=== PATIENT | female | born 1975 | race Caucasian/White ===

== ENCOUNTER → 2016-11-13 | Outpatient (CLI) | payer BC ==
[~2016-11-13] MED LIST: ACHD5005 PO; CYCL10TA45 PO; CYCL10TA9 PO; DICL25TA PO; DICL75TA2 PO; HCTZ12.5T PO; HYDR-2890 PO; HYDR-3720 PO; METH750T3 PO; OMEP-10 PO; PRD20T PO
--- OUTSIDE RECORDS SUMMARY | 2016-11-13 13:36 | XMS REPORT | Continuity of Care Document ---
Author Author [facility] Organization [facility] Address Unknown Phone Unavailable Care Team Providers Care Cutter And Paster Press Clippings Name Role Phone JULIA MAGDALENO JOHN PCP Insurance Providers Payer Name Policy Number Subscriber Name Relationship [facility] [id number] Melinda Contreras 17 Self / Same As Patient Advance Directives Directive Response Recorded Date/Time Advance Directives No 04/16/14 10:30am Health Care Power of Fun House Attendant No 04/16/14 10:30am Organ Donor No 04/16/14 10:30am Resuscitation Status Full Code 04/16/14 10:30am Problems No known problems or medical conditions. Medications Medication Dose Route Sig Days/Qty Instructions Order Date Discontinued Date Status Cyclobenzaprine HCl (Flexeril) 1 Each PO Q8HR PRN 20 Qty 12/06/12 Discontinued Acetaminophen/Hydrocodone Bitart 1 - 2 Each PO EVERY 6 HOURS PRN 14 Qty 12/06/12 04/11/14 Discontinued Prednisone 40 Mg PO DAILY 5 Days 12/06/12 04/11/14 Discontinued Diclofenac Sodium 25 Mg PO TWICE A DAY 04/11/14 04/11/14 Discontinued Hydrocodone Bit/Acetaminophen 1 Tab PO FOUR TIMES DAILY 04/11/14 Discontinued Omeprazole 20 Mg PO DAILY 04/11/14 Active Diclofenac Sodium 75 Mg PO TWICE A DAY 04/11/14 04/16/14 Discontinued Hydrochlorothiazide 12.5 Mg PO DAILY 04/11/14 Active Methocarbamol (Robaxin) 1 Each PO THREE TIMES A DAY 04/11/14 Discontinued Hydrocodone Bit/Acetaminophen 1-2 Tab PO EVERY 4HRS 90 Qty 04/16/14 Active Cyclobenzaprine Hcl 10 Mg PO THREE TIMES A DAY PRN SPASMS 1 Qty Active Social History Social History Problem Response Recorded Date/Time Alcohol Use Occasionally Uses 12/06/2012 8:50am Recreational Drug Use No 12/06/2012 8:50am Smoking Status Former Smoker 04/16/2014 10:55am Query Response Start Date Stop Date Smoking Status Former Smoker 10/21/2013 Hospital Discharge Instructions No hospital discharge instructions. Plan of Care No plan of care. Functional Status No functional status results. Allergies, Adverse Reactions, Alerts Allergen Type Severity Reaction Status Last Updated No Known Drug Allergies Active 12/06/12 Immunizations No immunization records. Vital Signs Acute Vital Signs Vital Response Date/Time Temperature (Fahrenheit) 98.1 degrees F (97.6 - 99.5) Temperature (Calculated Celsius) 36.08164 degrees C (36.4 - 37.5) Temperature Source Tympanic Pulse Rate (adult) 65 bpm (60 - 90) Respiratory Rate 20 bpm (12 - 24) O2 Sat by Pulse Oximetry 99 % (88 - 100) Blood Pressure 109/61 mm Hg Pain Pain Intensity 6 Height (Feet) 5 feet Height (Inches) 6.00 inches Height (Calculated Centimeters) 167.089017 cm Weight (Pounds) 157 pounds Weight (Calculated Grams) 74080.003 gm Weight (Calculated Kilograms) 71.687771 kilograms Calculated BMI 25.34 Results Test Source Date Result Interp. Ref. Range Comments BUN/Creatinine Ratio April 11, 2014 10:00am 12 - Basophils # (Auto) April 11, 2014 10:00am 0.1 10^3/uL N 0.0-0.1 Basophils (%) (Auto) April 11, 2014 10:00am 1 % N 0-10 Blood Urea Nitrogen April 11, 2014 10:00am 10 MG/DL N 7-18 Calcium Level April 11, 2014 10:00am 9.1 MG/DL N 8.5-10.1 Carbon Dioxide Level April 11, 2014 10:00am 27 MMOL/L N 21-32 Chloride Level April 11, 2014 10:00am 105 MMOL/L N 98-107 Creatinine April 11, 2014 10:00am 0.82 MG/DL N 0.60-1.30 Eosinophils # (Auto) April 11, 2014 10:00am 0.1 10^3/uL N 0.0-0.3 Eosinophils (%) (Auto) April 11, 2014 10:00am 2 % N 0-10 Glucose Level April 11, 2014 10:00am 92 MG/DL N 70-105 Hematocrit April 11, 2014 10:00am 40 % N 35-52 Hemoglobin April 11, 2014 10:00am 13.6 G/DL N 11.5-16.0 Lymphocytes # (Auto) April 11, 2014 10:00am 2.2 X 10^3 N 1.0-4.0 Lymphocytes (%) (Auto) April 11, 2014 10:00am 35 % N 12-44 Mean Corpuscular Hemoglobin April 11, 2014 10:00am 31 PG N 25-34 Mean Corpuscular Hemoglobin Concent April 11, 2014 10:00am 34 G/DL N 32- 36 Mean Corpuscular Volume April 11, 2014 10:00am 91 FL N 80-99 Mean Platelet Volume April 11, 2014 10:00am 10.3 FL N 7.4-10.4 Monocytes # (Auto) April 11, 2014 10:00am 0.6 X 10^3 N 0.0-1.0 Monocytes (%) (Auto) April 11, 2014 10:00am 9 % N 0-12 Neutrophils # (Auto) April 11, 2014 10:00am 3.3 X 10^3 N 1.8-7.8 Neutrophils (%) (Auto) April 11, 2014 10:00am 53 % N 42-75 Platelet Count April 11, 2014 10:00am 262 10^3/uL N 130-400 Potassium Level April 11, 2014 10:00am 4.0 MMOL/L N 3.6-5.0 Red Blood Count April 11, 2014 10:00am 4.40 10^6/uL N 4.35-5.85 Red Cell Distribution Width April 11, 2014 10:00am 12.6 % N 10.0-14.5 Sodium Level April 11, 2014 10:00am 137 MMOL/L N 135-145 White Blood Count April 11, 2014 10:00am 6.2 10^3/uL N 4.3-11.0 Estimat Glomerular Filtration Rate April 11, 2014 10:00am > 60 - GFR INTERPRETIVE DATA UNITS FOR ESTIMATED GFR (eGFR): mL/min/1.73 M2 REFERENCE RANGE FOR ESTIMATED GFR (eGFR) eGFR NORMAL eGFR >60 MODERATELY DECREASED eGFR 30-59 SEVERLY DECREASED eGFR 15-29 KIDNEY FAILURE <15 (OR DIALYSIS) MRSA Screen Nasal April 11, 2014 10:00am MRSA not isolated Procedures Procedure Status Date Provider(s) Lumbar microdiscectomy completed 04/16/14 PEREZ SAMUELS III, MD Encounters Encounter Location Date/Time Registered Clinic Via [facility] 04/11/14 9:37am Registered Clinic [facility] 03/26/14 1:54pm
--- NOTE | 2016-11-17 20:36 | Diagnostic Imaging Report ---
Bilateral screening mammogram The current study was also evaluated with a Computer Aided Detection (CAD) system. Indication: Screening. No current complaints stated on the questionnaire. COMPARISON: None. This is a baseline study. FINDINGS: The breasts are extremely dense which would decrease mammographic sensitivity. There is no discrete mass, architectural distortion or suspicious cluster of calcification. IMPRESSION: Extremely dense parenchyma which would decrease mammographic sensitivity without a definite focal lesion. Since this is a baseline study without comparison exams, bilateral ultrasound evaluation is suggested. ACR BI-RADS Category 0: Incomplete. (Needs additional imaging evaluation). Result letter will be mailed to the patient. Note: At least 10% of breast cancer is not imaged by mammography. Dictated by: Dictated on workstation # [id number]
== END ==
LOC: RAD 13:33
PROVIDERS: ATTEND Nurse Practitioner
DX: Z12.31 Encounter for screening mammogram for malignant neoplasm of breast (principal)
CPT/HCPCS: 77067

== ENCOUNTER → 2016-11-26 | Outpatient (CLI) | payer BC ==
--- OUTSIDE RECORDS SUMMARY | 2016-11-26 13:34 | XMS REPORT | Continuity of Care Document ---
Author Author [facility] Organization [facility] Address Unknown Phone Unavailable Care Team Providers Care Machine Cage Maker Name Role Phone JULIA MAGDALENO JOHN PCP Insurance Providers Payer Name Policy Number Subscriber Name Relationship [facility] [id number] Melinda Contreras 17 Self / Same As Patient Advance Directives Directive Response Recorded Date/Time Advance Directives No 04/16/14 10:30am Health Care Power of Scale Tester No 04/16/14 10:30am Organ Donor No 04/16/14 [...] F (97.6 - 99.5) Temperature (Calculated Celsius) 36.49894 degrees C (36.4 - 37.5) Temperature Source Tympanic Pulse Rate (adult) 65 bpm (60 - 90) Respiratory Rate 20 bpm (12 - 24) O2 Sat by Pulse Oximetry 99 % (88 - 100) Blood Pressure 109/61 mm Hg Pain Pain Intensity 6 Height (Feet) 5 feet Height (Inches) 6.00 inches Height (Calculated Centimeters) 167.280392 cm Weight (Pounds) 157 pounds Weight (Calculated Grams) 94087.003 gm Weight (Calculated Kilograms) 71.772699 kilograms Calculated BMI 25.34 Results Test Source [...] Encounters Encounter Location Date/Time Registered Clinic [facility] 04/11/14 9:37am Registered Clinic [facility] 03/26/14 1:54pm
--- NOTE | 2016-11-26 21:55 | Diagnostic Imaging Report ---
INDICATION: Followup screening mammogram. EXAMINATION: Bilateral breast ultrasound. FINDINGS: The baseline screening mammogram performed on 11/13/16 failed to show any evidence for malignancy. However, the fibroglandular tissue in each breast was extremely dense and ultrasound was recommended for more sensitive evaluation of the breast tissue. On this study, there is no discrete solid or cystic mass within either breast. IMPRESSION: 1. There is no discrete solid or cystic mass within either breast. 2. The patient should have her annual bilateral screening mammogram on schedule in November of 2017. ACR BI-RADS Category 1: Negative. Result letter will be mailed to the patient. Note: At least 10% of breast cancer is not imaged by mammography. Dictated by: Dictated on workstation # [id number]
== END ==
LOC: RAD 13:31
PROVIDERS: ATTEND Nurse Practitioner
DX: R92.8 Other abnormal and inconclusive findings on diagnostic imaging of breast (principal)

== ENCOUNTER → 2017-03-01 | Outpatient (CLI) | payer BC ==
--- NOTE | 2017-03-01 09:14 | Diagnostic Imaging Report ---
PROCEDURE: MRI lumbar spine. TECHNIQUE: Multiplanar/multisequence MRI of the lumbar spine was performed without contrast. INDICATION: Back pain. FINDINGS: There is a transitional lumbosacral junction with a slightly prominent disc between S1 and S2. There is grade 1 retrolisthesis of L5 over S1. The vertebral body heights are preserved. The L5-S1 disc demonstrates significant height loss. There is prominent endplate edema around the L5-S1 disc. The other discs demonstrate no significant height loss or dislocation. The cauda equina and conus medullaris appear grossly unremarkable. T12-L1: No disc herniation. No spinal canal or foraminal stenosis. L1-2: No disc herniation. No spinal canal or foraminal stenosis. L2-3: No disc herniation. No spinal canal or foraminal stenosis. L3-4: No disc herniation. There is mild to moderate facet hypertrophy. No spinal canal or foraminal stenosis, however. L4-5: There is no disc herniation. There is moderate facet and ligamentous hypertrophy with no central canal stenosis. There is mild narrowing of the left lateral recess. The right lateral recess is patent. The foramina demonstrates bilateral stenosis of a mild degree, more on the left. L5-S1: There is grade 1 retrolisthesis at this level. There is significant improvement compared to 07/12/2014, perhaps related to discectomy. Correlate with surgical history. At this point, there is a mild diffuse bulge with a small left posterolateral protrusion and mild facet hypertrophy. The ligamentum flavum on the left side is removed along with a left hemilaminectomy. At this point, there is moderate lateral recess stenosis on the left and mild lateral recess stenosis on the right abutting the descending S1 nerve roots. Bilateral moderate foraminal stenosis is seen, worse on the left side. IMPRESSION: There is significant improvement since 07/12/2014 with presumed interval discectomy performed at L5-S1. There is suggestion of recurrence of a relatively small left posterolateral disc protrusion with associated moderate lateral recess stenosis on the left. Dictated by: Dictated on workstation # [id number]
== END | disposition home or self-care (01) ==
LOC: RAD 07:48
PROVIDERS: ATTEND Orthopaedic Surgery Orthopaedic Surgery of the Spine
DX: M54.9 Dorsalgia, unspecified (principal)
CPT/HCPCS: 72148

== ENCOUNTER 2021-11-27 12:08 | Outpatient (CLI) | payer BC ==
[~2021-11-27] VITALS: Ht 167.7 cm; Wt 53.1 kg
== END 2021-11-27 13:18 | disposition home or self-care (01) ==
LOC: PREOP 12:08
PROVIDERS: ATTEND Surgery
DX: Z01.818 Encounter for other preprocedural examination (principal)

== ENCOUNTER 2021-11-28 09:05 | Day surgery (SDC) | payer BC ==
[~2021-11-28] VITALS: Ht 167.7 cm; Wt 53.1 kg
[2021-11-28] MEDS ORDERED: LACTATED RINGERS 1,000 ML IV STA (09:11)
[2021-11-28] MEDS ORDERED: LIDOCAINE JELLY 2% 6 ML SYRINGE MM PRN (09:15)
[2021-11-28] MEDS ORDERED: LACTATED RINGERS 1,000 ML IV ONE (09:18)
[2021-11-28 09:44] VITALS: BP 131/95
--- NOTE | 2021-11-28 10:29 | Progress Note-Pre Operative ---
Pre-Operative Progress Note H&P Reviewed The H&P was reviewed, patient examined and no changes noted. Date Seen by Provider: Nov 28, 2021 Time Seen by Provider: 10:00 Date H&P Reviewed: Nov 28, 2021 Time H&P Reviewed: 10:00 Pre-Operative Diagnosis: weight loss, rectal bleed LING SOTO MD Nov 28, 2021 10:29
[2021-11-28] MEDS ORDERED: ONDANSETRON 4 MG/2 ML (SDV) Z0FRAN IVP PRN (10:30)
[2021-11-28] MEDS ORDERED: ONDANSETRON 4 MG (ZOFRAN) ORAL DISSOLVE TAB PO PRN (10:30)
--- NOTE | 2021-11-28 10:30 | Discharge Inst-Surgical ---
D/C Lap Instructions-CHARLES Follow Up 2 weeks Activity as tolerated High Fiber Diet 25g or more per day Avoid Alcohol, Caffeine, Spicy [place] and Acid foods. Drink 64 fluid oz or more of fluids per day. Symptoms to Report: Fever over 101 degree F, Nausea/Vomiting If any problems/questions: Contact your physician or go to Emergency Room LING SOTO MD Nov 28, 2021 10:30
[2021-11-28] MEDS ORDERED: PROPOFOL INJECTION 50 ML IV ONE (10:48)
[2021-11-28 11:40] VITALS: BP 127/72
[2021-11-28 11:45] VITALS: BP 122/70
[2021-11-28 11:50] VITALS: BP 141/81
--- NOTE | 2021-11-28 11:51 | Progress Note-Post Operative ---
Post-Operative Progess Note Surgeon (s)/Lace Cutter (s) Surgeon LING SOTO MD Lace Cutter: none Pre-Operative Diagnosis weight loss, rectal bleed Post-Operative Diagnosis stage 3 chronic infammed hemorrhoid v. neoplasm, chronic stage 2 int hemorrhoids, normal colon and rectum. Procedure & Operative Findings Date of Procedure 11/28/21 Procedure Performed/Findings colonoscopy with bx. Anesthesia Type mac Estimated Blood Loss Estimated blood loss (mL): minimal Specimens/Packing Specimens Removed external anal lesion LING SOTO MD Nov 28, 2021 11:51
[2021-11-28 11:55] VITALS: BP 141/81
[2021-11-28 12:16] VITALS: BP 135/78
--- NOTE | 2021-11-28 12:29 | Anesthesia-General Post-Op ---
MAC Patient Condition Mental Status/LOC: Same as Preop Cardiovascular: Satisfactory Nausea/Vomiting: Absent Respiratory: Satisfactory Pain: Controlled Complications: Absent Post Op Complications Complications None Follow Up Care/Instructions Patient Instructions None needed. Anesthesiology Discharge Order Discharge Order Patient is doing well, no complaints, stable vital signs, no apparent adverse anesthesia problems. No complications reported per nursing. FELICITY LARIOS CRNA Nov 28, 2021 12:29
--- NOTE | 2021-11-28 14:23 | OPERATIVE REPORT ---
DATE OF SERVICE: 11/28/2021 ATTENDING [facility]: [facility] PREOPERATIVE DIAGNOSES: Rectal bleeding, external anal mass, lymphadenopathy, weight loss. POSTOPERATIVE DIAGNOSES: Chronic stage III external hemorrhoid, stage II internal hemorrhoids. Remainder of the colon and rectum were normal. PROCEDURE: Colonoscopy with biopsy. SURGEON: Ling Soto MD. ANESTHESIA: Monitored anesthesia care. ESTIMATED BLOOD LOSS: Minimal. FINDINGS: Chronic stage III external hemorrhoid, stage II internal hemorrhoids. Remainder of the colon and rectum were normal. DISPOSITION: The patient tolerated the procedure well. INDICATIONS: The patient is a 46-year-old female who was seen by her FINISHER MAP AND CHART for rectal bleeding as well as a firm nodule in the external anal region. She states that she has had some issues having bowel movements in the past and has had constipation as well. She also reports that she has lost approximately 20 pounds over the past 7 months. She also reports that she has developed lymphadenopathy in the right axilla, bilateral inguinal region as well as the neck on an intermittent basis. Upon further questioning, she also does report night sweats. DESCRIPTION OF PROCEDURE: The patient was brought to the endoscopy suite, laid in the left lateral decubitus position. After adequate IV pain and sedative medications and monitored anesthesia care, a digital rectal examination was performed. There was a lesion at the 6 o'clock position if the patient was supine and this was attached to a stage III external hemorrhoidal cushion, this may be a chronic inflamed hemorrhoidal tissue; however, we cannot be sure and multiple biopsies were taken with forceps with visualization of good hemostasis. There was a stage II internal hemorrhoids with no active bleeding. Normal sphincter tone was felt and there were no palpable masses. The endoscope was then intubated and anus and rectum gently insufflated. The endoscope was then advanced through the valves of Mcke[place] of the rectum with no polyps or any neoplasms identified. We then proceeded through the sigmoid colon where no diverticulosis identified. The endoscope was then advanced to the remainder of the descending, transverse and ascending colon to the cecum, which were normal. There were no polyps or any neoplasms identified. The endoscope was then slowly withdrawn while taking a second look and suctioning of residual air with no additional findings. The patient tolerated the procedure well. We will await the biopsy results; however, due to her symptomatology, this is somewhat worrisome for lymphoma and we will have her follow up in the office in 2 weeks to reevaluate her symptomatology and have her proceed with an excisional biopsy of enlarged lymph node; however, also formal excision of the hemorrhoidal cushion to help with her discomfort and bleeding associated with the lesion. Job ID: [id number] DocumentID: [id number] Dictated Date: 11/28/2021 11:46:30 Knit Goods Cutter Hand Date: 11/28/2021 14:22:43 Dictated By: LING SOTO MD
== END 2021-11-28 12:20 | disposition home or self-care (01) ==
LOC: ENDO 09:05
PROVIDERS: ATTEND Surgery
DX: K64.1 Second degree hemorrhoids (principal); K64.4 Residual hemorrhoidal skin tags; K62.89 Other specified diseases of anus and rectum; F17.210 Nicotine dependence, cigarettes, uncomplicated; Z85.41 Personal history of malignant neoplasm of cervix uteri

== ENCOUNTER 2021-12-16 05:31 | Outpatient (CLI) | payer BC ==
[~2021-12-16] VITALS: Ht 167.7 cm; Wt 51.8 kg
[~2021-12-16 05:31] MED LIST changes: -CATHETER FLUSH 10 ML SYR IV PRN; -HOLD METFORMIN - RECEIVED CONTRAST 20 ML VIAL IV SCH; -HYDR-3817 PO; -IOHEXOL 350 MG/ML 100 ML (OMNIPAQUE 350) VIAL IV ONE; -NS 100 ML (IVPB) BAG IV ONE
== END 2021-12-16 15:40 ==
LOC: PREOP 05:31
PROVIDERS: ATTEND Surgery
DX: Z01.818 Encounter for other preprocedural examination (principal)

== ENCOUNTER → 2021-12-16 | Outpatient (CLI) | payer BC ==
[~2021-12-16] MED LIST changes: +CATHETER FLUSH 10 ML SYR IV PRN; +HOLD METFORMIN - RECEIVED CONTRAST 20 ML VIAL IV SCH; +HYDR-3817 PO; +IOHEXOL 350 MG/ML 100 ML (OMNIPAQUE 350) VIAL IV ONE; +NS 100 ML (IVPB) BAG IV ONE
[2021-12-16 09:24] LABS: CREATININE SERUM 0.76 MG/DL (0.60-1.30)
--- NOTE | 2021-12-16 13:14 | Diagnostic Imaging Report ---
PROCEDURE: CT of the chest and pelvis with contrast and CT of the abdomen with and without contrast. TECHNIQUE: Precontrast acquisitions were acquired through the abdomen. Multiple contiguous axial images were obtained through the chest, abdomen and pelvis after administration of intravenous contrast. Auto Exposure Controls were utilized during the CT exam to meet ALARA standards for radiation dose reduction. INDICATION: Weight loss and enlarged lymph nodes. COMPARISON: None available. FINDINGS: CT CHEST: There are a few subcentimeter nodules within the right thyroid lobe, which do not meet criteria for suggested follow-up based on appearance and size. No supraclavicular or axillary lymphadenopathy. No mediastinal or hilar lymphadenopathy. Heart is normal in size without pericardial effusion. Normal-caliber thoracic aorta. No pleural effusion or pneumothorax. No pneumonia or edema. No suspicious pulmonary nodules. No worrisome focal osseous lesion in the chest. CT ABDOMEN AND PELVIS: The liver, gallbladder, spleen, and pancreas are normal. No adrenal mass. Cortical thinning and lobulations in the upper pole of the right kidney are due to areas of cortical scar likely from prior infection. Urinary bladder is decompressed, limiting assessment. Uterus is not visualized and likely surgically absent. No adnexal mass. No dilated loops of bowel. Appendix is not seen, but there are no secondary features that would suggest acute appendicitis. No abdominal or pelvic lymphadenopathy. Normal-caliber abdominal aorta without dissection. IMPRESSION: 1. No lymphadenopathy or other abnormality that would suggest neoplasm in the chest, abdomen, or pelvis. 2. No acute intrathoracic or intra-abdominal process. Dictated by: Dictated on workstation # [id number]
== END ==
LOC: RAD 08:15
PROVIDERS: ATTEND Surgery
DX: R59.9 Enlarged lymph nodes, unspecified (principal); R63.4 Abnormal weight loss
CPT/HCPCS: 36415; 71260; 74178; 82565; 84520

== ENCOUNTER 2021-12-18 09:22 | Day surgery (SDC) | payer BC ==
[2021-12-18] VITALS (10 sets, daily range): BP systolic 129–156; BP diastolic 68–98
[~2021-12-18] VITALS: Ht 167.7 cm; Wt 51.8 kg
[2021-12-18] MEDS ORDERED: HYDR-3817 PO (09:36)
--- NOTE | 2021-12-18 09:36 | Discharge Inst-Surgical ---
D/C Lap Instructions-KIDO Reconcile Patient Problems Problems Reviewed?: Yes New, Converted, or Re-Newed RX: RX on Chart Follow Up Appt in 2 weeks Activity as tolerated No driving for 24 hours No driving while on pain medications Incentive Spirometry use every 2 hours while awake Regular Diet Symptoms to Report: Fever over 101 degree F, Nausea/Vomiting Infection Signs and Symptoms to report: Increased redness, Foul odor of wound, Increased drainage Bathing instructions: May shower Operative Area Clean/Dry; Keep incision clean/dry If any problems/questions: Contact your physician or go to Emergency Room ROMERO SALOMON APRN Dec 18, 2021 09:36
--- NOTE | 2021-12-18 09:38 | Progress Note-Pre Operative ---
Pre-Operative Progress Note H&P Reviewed The H&P was reviewed, patient examined and no changes noted. Date Seen by Provider: Dec 18, 2021 Time Seen by Provider: 09:35 Date H&P Reviewed: Dec 18, 2021 Time H&P Reviewed: 09:30 Pre-Operative Diagnosis: Axillary, posterior cervical, inguinal Lymphadenopathy, weight loss ROMERO SALOMON APRN Dec 18, 2021 09:38
[2021-12-18] MEDS ORDERED: morphine INJ 10 MG/ML 1ML (SYR OR VIAL) IVP PRN (09:45)
[2021-12-18] MEDS ORDERED: ONDANSETRON 4 MG/2 ML (SDV) Z0FRAN IVP PRN ×2 (09:45→13:45)
[2021-12-18] MEDS ORDERED: ACETAMINOPHEN 325 MG TABLET PO PRN (09:45)
[2021-12-18] MEDS ORDERED: ceFAZolin INJECTION 1,000 MG VIAL IV ONE (09:45)
[2021-12-18] MEDS ORDERED: HYDROcodone/APAP 5 MG/325 MG (LORTAB) TAB PO ONE (09:45)
[2021-12-18] MEDS: LACTATED RINGERS 1,000 ML IV PRN ×2 (10:02→13:00)
[2021-12-18] MEDS ORDERED: LIDOCAINE/EPI 2% 1:200,00 (XYLOCAINE) 20 ML VIAL ONE (12:07)
[2021-12-18] MEDS ORDERED: MIDAZOLAM 2 MG/2 ML (VERSED) VIAL ONE (12:19)
[2021-12-18] MEDS ORDERED: fentaNYL INJ 100 MCG/2 ML AMP ONE (12:36)
[2021-12-18] MEDS ORDERED: LIDOCAINE PF 2% 5 ML (XYLOCAINE) VIAL ONE (13:07)
[2021-12-18] MEDS ORDERED: proPOfol 200 MG/20 ML (DIPRIVAN) VIAL IV ONE (13:07)
[2021-12-18] MEDS ORDERED: SEVOFLURANE (ULTANE) 15 ML INHAL SOLN ONE (13:16)
[2021-12-18] MEDS ORDERED: morphine INJ 10 MG/ML 1ML (SYR OR VIAL) IVP ONE (13:45)
[2021-12-18] MEDS ORDERED: HYDROcodone/APAP 5 MG/325 MG (LORTAB) TAB ONE (14:21)
--- NOTE | 2021-12-18 15:02 | Progress Note-Post Operative ---
Post-Operative Progess Note Surgeon (s)/Card Dealer (s) Surgeon LING SOTO MD Card Dealer: none Pre-Operative Diagnosis Axillary, posterior cervical, inguinal Lymphadenopathy, weight loss, sympto Post-Operative Diagnosis adenopathy, wt loss, sx stage 3 ext and int rt post hemorrhoid cushion. Procedure & Operative Findings Date of Procedure 12/18/21 Procedure Performed/Findings right cervical LN bx. pudendal nerve block, anal exam under anesth, hood closed hemorrhoidectomy. Anesthesia Type general lma Estimated Blood Loss Estimated blood loss (mL): minimal Specimens/Packing Specimens Removed cervical LN. hemorrhoid cushion. LING SOTO MD Dec 18, 2021 15:02
--- NOTE | 2021-12-18 15:11 | Anesthesia-General Post-Op ---
General Patient Condition Mental Status/LOC: Same as Preop Cardiovascular: Satisfactory Nausea/Vomiting: Absent Respiratory: Satisfactory Pain: Controlled Complications: Absent Post Op Complications Complications None Follow Up Care/Instructions Patient Instructions None needed. Anesthesia/Patient Condition Patient Condition Patient is doing well, no complaints, stable vital signs, no apparent adverse anesthesia problems. GATITO REEVES DO Dec 18, 2021 15:11
--- NOTE | 2021-12-18 19:47 | OPERATIVE REPORT ---
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 PROCEDURES: Excisional biopsy deep right posterior cervical lymph node, pudendal nerve block, anal exam under anesthesia, formal excision of right posterior external and internal hemorrhoidal cushion. SURGEON: Ling Soto MD CLINICAL MENTAL HEALTH COUNSELOR: Michael Hope APRN. ANESTHESIA: General laryngeal mask airway. ESTIMATED BLOOD LOSS: Minimal. FINDINGS: Small cervical lymph node identified. An enlarged external and internal hemorrhoidal cushion of the right posterior hemorrhoidal cushion. DISPOSITION: The patient tolerated the procedure well. INDICATIONS: The patient is a 46-year-old female who was seen by [facility] for rectal bleeding and a firm nodule identified in the external anal region. She reports that she has had some constipation in the past. She also reports a 20- to 30-pound weight loss in the past year. She has also developed lymphadenopathy on an intermittent basis in the axilla, inguinal region as well as the cervical region. Upon further questioning, she does also report some night sweats on an intermittent basis. On 11/29/2019, she underwent a colonoscopy and findings were chronic stage III external hemorrhoidal cushion as well as a connecting stage II internal hemorrhoidal cushions. Remainder of the colon and rectum were normal. Biopsies were negative for any dysplasia or malignancy. Due to her persistent lymphadenopathy, weight loss as well as night sweats, we will proceed with an excisional biopsy of the posterior cervical lymph node as well as excision of the right posterolateral symptomatic external and internal hemorrhoidal cushion. DESCRIPTION OF PROCEDURE: The patient was brought to the operating room, laid supine on the table. After adequate IV pain and sedative medications and general laryngeal mask airway intubation, the neck was prepped and draped in standard surgical fashion. A 0.5% Marcaine with epinephrine was used to anesthetize the overlying skin in the posterior cervical region and a skin incision along the glabellar lines was made using a #15 blade. The subcutaneous tissue was then dissected using electrocautery. The fascia was then opened and muscle layers dissected bluntly with Metzenbaum scissors. The lymph node was identified and completely dissected out using electrocautery with visualization of good hemostasis. The subcutaneous tissue was then reapproximated using 3-0 Vicryl interrupted sutures. Skin was closed using 4-0 Monocryl running subcuticular suture. Wound was then cleaned and covered with Dermabond. The patient was then placed in lithotomy position and the perineum prepped and draped in standard surgical fashion. A pudendal nerve block was performed approximately 2 cm from the ischial tuberosity bilaterally along the anal sphincters to relax using 1% lidocaine with epinephrine. Anal exam under anesthesia was performed. The same lesion identified, which was a chronic stage III right posterolateral hemorrhoidal cushion identified with continuous stage II internal hemorrhoidal cushion. The other two hemorrhoidal cushions appeared to be mild stage II. We then proceeded with formal F[place]on closed hemorrhoidectomy of that external and internal hemorrhoidal cushion. The area was anesthetized using 1% lidocaine with epinephrine. A stay suture above the internal hemorrhoid was placed using a 2-0 Vicryl suture and tagged. The external and internal hemorrhoid was then excised en bloc using a Sonicision with visualization of good hemostasis. The mucosa and anoderm were then reapproximated with a previously placed stay suture in a running fashion with visualization of good hemostasis. The anal sphincter was identified and spared throughout the process. A hemostatic plug made out of Surgicel and Gelfoam was then placed into the anal canal. This was then followed by 4 x 4 gauze followed by ABD pad and mesh shorts. The patient tolerated the procedure well. We will await the biopsy results of the lymph node as well as the hemorrhoidal cushion and we will also instruct her to proceed with stool softeners and a fiber supplement to make her stools soft and to do Sitz baths 4 times a day as well as after every bowel movement and to keep the area clean and dry. Job ID: [id number] DocumentID: [id number] Dictated Date: 12/18/2021 13:23:52 City Planner Date: 12/18/2021 19:47:03 Dictated By: LING SOTO MD
== END 2021-12-18 15:15 | disposition home or self-care (01) ==
LOC: SDC 09:22
PROVIDERS: ATTEND Surgery
DX: R59.0 Localized enlarged lymph nodes (principal); K64.4 Residual hemorrhoidal skin tags; K64.1 Second degree hemorrhoids; R63.4 Abnormal weight loss; R61 Generalized hyperhidrosis; K62.89 Other specified diseases of anus and rectum; R59.1 Generalized enlarged lymph nodes; R97.0 Elevated carcinoembryonic antigen [CEA]; F17.210 Nicotine dependence, cigarettes, uncomplicated
CPT/HCPCS: 84703; 87081; 94664